=== PATIENT | female | born 1980 | race Two or more races ===

== ENCOUNTER 2016-10-10 15:38 | Inpatient (IN) | payer OTHER ==
[~2016-10-10] VITALS: Ht 165.1 cm; Wt 83.0 kg
[2016-10-10] MEDS ORDERED: METOCLOPRAMIDE 5 MG/ML, 2ML ONE (16:29)
[2016-10-10] MEDS ORDERED: DIPHENHYDRAMINE 50 MG/ML, 1ML ONE (16:29)
[2016-10-10] MEDS ORDERED: KETOROLAC 30 MG/1 ML ONE (16:29)
[2016-10-10] MEDS ORDERED: METOCLOPRAMIDE 5 MG/ML, 2ML IVPush ONE (16:30)
[2016-10-10] MEDS ORDERED: SODIUM CHLORIDE 0.9% 1,000ML IVBOLUS ONE (16:30)
[2016-10-10] MEDS ORDERED: KETOROLAC 30 MG/1 ML IVPush ONE (16:30)
[2016-10-10] MEDS ORDERED: SODIUM CHLORIDE FLUSH 10ML SYR IVF ONE ×2 (16:30)
[2016-10-10] MEDS ORDERED: DIPHENHYDRAMINE 50 MG/ML, 1ML IVPush ONE (16:30)
[2016-10-10 16:54] LABS: ASPARTATE AMINO TRANSFERASE 21 U/L (15-37); BLOOD UREA NITROGEN 8 mg/dL (7-18)
[2016-10-10 17:01] LABS: IS PT STATUS REG ER OR PRE ER? YES
[2016-10-10] MEDS ORDERED: OMNIPAQUE 350 MG/ML, 100ML BOTTLE ONE (18:23)
[2016-10-10] MEDS ORDERED: ENOXAPARIN 80 MG/0.8 ML SQ ONE (19:00)
[2016-10-10] MEDS ORDERED: ENOXAPARIN 80 MG/0.8 ML ONE (19:09)
[2016-10-10] MEDS ORDERED: hydrALAzine 20 MG/ML, 1ML IVPush PRN (21:00)
[2016-10-10 21:46] VITALS: BP 107/74
[2016-10-10] MEDS: DOXYCYCLINE 100MG TABLET PO SCH (22:18)
[2016-10-10] MEDS: DIPHENHYDRAMINE 25 MG CAPSULE PO PRN (22:19)
[2016-10-11 02:52] VITALS: BP 98/64
[2016-10-11] MEDS: DOXYCYCLINE 100MG TABLET PO SCH ×2 (08:40→21:27)
[2016-10-11] MEDS: APIXABAN 5 MG TABLET PO SCH ×2 (08:40→21:27)
[2016-10-11 08:42] VITALS: BP 104/65
[2016-10-11] MEDS: ACETAMINOPHEN 325 MG TABLET PO PRN ×3 (08:47→18:09)
[2016-10-11 13:40] VITALS: BP 90/56
[2016-10-11] MEDS ORDERED: Enoxaparin 1 mg/kg protocol SQ SCH (17:30)
[2016-10-11 20:42] VITALS: BP 100/69
[2016-10-11] MEDS: DOCUSATE 100 MG CAPSULE PO PRN (21:27)
[2016-10-11] MEDS: DIPHENHYDRAMINE 25 MG CAPSULE PO PRN (21:28)
[2016-10-12 03:00] VITALS: BP 97/67
[2016-10-12] MEDS: ACETAMINOPHEN 325 MG TABLET PO PRN ×2 (03:07→18:14)
[2016-10-12 08:10] VITALS: BP 91/59
[2016-10-12] MEDS: DOXYCYCLINE 100MG TABLET PO SCH ×2 (09:38→20:58)
[2016-10-12] MEDS: DOCUSATE 100 MG CAPSULE PO PRN (09:38)
[2016-10-12] MEDS: APIXABAN 5 MG TABLET PO SCH ×2 (09:38→20:58)
[2016-10-12] MEDS: BUTALB/APAP/CAFFEINE 50MG/325MG/40MG PO PRN ×4 (09:38→22:35)
[2016-10-12 13:10] VITALS: BP 99/76
[2016-10-12 19:41] VITALS: BP 100/63
[2016-10-13 00:47] VITALS: BP 116/70
[2016-10-13 06:59] VITALS: BP 101/71
[2016-10-13] MEDS ORDERED: DOXY100T PO (08:10)
[2016-10-13] MEDS ORDERED: APIX5TAB PO (08:10)
[2016-10-13] MEDS: DOXYCYCLINE 100MG TABLET PO SCH (08:33)
[2016-10-13] MEDS: APIXABAN 5 MG TABLET PO SCH (08:33)
[2016-10-13] MEDS: BUTALB/APAP/CAFFEINE 50MG/325MG/40MG PO PRN (10:19)
== END 2016-10-13 11:21 | DRG 175 ==
LOC: ED 19:17 → EDIP 19:20 → 4WST 21:08 → DCLOUNGE 10-13 10:30
PROVIDERS: ADMIT Internal Medicine; ATTEND Family Medicine
DX: I26.99 Other pulmonary embolism without acute cor pulmonale (principal); J15.9 Unspecified bacterial pneumonia; R45.851 Suicidal ideations; E44.1 Mild protein-calorie malnutrition; F32.9 Major depressive disorder, single episode, unspecified; J45.909 Unspecified asthma, uncomplicated; Z82.49 Family history of ischemic heart disease and other diseases of the circulatory system; Z68.30 Body mass index [BMI] 30.0-30.9, adult
CPT/HCPCS: 36415; 71010; 71275; 80053; 81240; 81241; 84484; 84703; 85025; 85240; 85300; 85303; 85306; 85379; 86147; 93005; 93970; 96361; 96372; 96374; 96375; J1650; J1885; Q9967; J1200; J2765; J7030; Q0163

== ENCOUNTER 2017-07-01 13:23 | Emergency (ER) | payer OTHER ==
[~2017-07-01] VITALS: Ht 165.1 cm; Wt 85.0 kg
[~2017-07-01 13:23] MED LIST: APIX5TAB PO; DOXY100T PO
[2017-07-01] MEDS ORDERED: SODIUM CHLORIDE FLUSH 10ML SYR IVF ONE (14:00)
[2017-07-01 14:14] LABS: BASOPHILS # (AUTO) 0.04 x10^3/uL (0-0.1); BASOPHILS % (AUTO) 1 % (0-1); EOSINOPHILS # (AUTO) 0.28 x10^3/uL (0-0.4); EOSINOPHILS % (AUTO) 4 % (1-7); LYMPHOCYTES # (AUTO) 1.78 x10^3/uL (1-3.4); LYMPHOCYTES % (AUTO) 24 % (22-44); MD NO; MEAN CORPUSCULAR HEMOGLOBIN 30.1 pg (27.0-34.8); MEAN CORPUSCULAR HGB CONC 33.6 g/dL (32.4-35.8); MEAN CORPUSCULAR VOLUME 89.8 fL (80-100); MEAN PLATELET VOLUME 7.8 fL (7.4-10.4); MONOCYTES % (AUTO) 5 % (2-9); NEUTROPHILS # (AUTO) 4.89 x10^3/uL (1.8-6.8); NEUTROPHILS % (AUTO) 66 % (42-75); PLATELET COUNT 320 x10^3/uL (130-400); RED CELL DISTRIBUTION WIDTH 12.6 % (9.6-15.2)
[2017-07-01] MEDS ORDERED: METH-356 PO (14:22)
[2017-07-01] MEDS ORDERED: IBUP-1223 PO (14:22)
[2017-07-01] MEDS ORDERED: CLON-365 PO (14:22)
[2017-07-01 14:24] LABS: INTERNATIONAL NORMALIZED RATIO 1.03 (0.93-1.1); PROTHROMBIN TIME 10.6 Seconds (9.6-11.5)
[2017-07-01 14:26] LABS: ALBUMIN 3.8 g/dL (3.4-5.0); ANION GAP 6 mmol/L (5-15); CALCIUM 8.7 mg/dL (8.5-10.1); CHLORIDE 109 mmol/L (98-107); CREATININE 1.02 mg/dL (0.55-1.02)
[2017-07-01 14:30] LABS: TROPONIN I < 0.015 ng/mL (0.000-0.045)
[2017-07-01] MEDS ORDERED: OMNIPAQUE 350 MG/ML, 100ML BOTTLE ONE (15:32)
[2017-07-01 15:37] VITALS: BP 101/61
== END 2017-07-01 16:48 | disposition home or self-care (01) ==
LOC: ED 16:15
DX: R07.9 Chest pain, unspecified (principal); R06.00 Dyspnea, unspecified; Z86.711 Personal history of pulmonary embolism
CPT/HCPCS: 36415; 71275; 80048; 82040; 84484; 85025; 85610; 85730; 93005; 99285; Q9967

== ENCOUNTER → 2017-08-03 | Outpatient (CLI) | payer OTHER ==
[~2017-08-03] MED LIST changes: +CLON-365 PO; +IBUP-1223 PO; +METH-356 PO; +SERT50TA PO
== END ==
LOC: STAR 07:45
PROVIDERS: ATTEND Specialist
DX: Z02.9 Encounter for administrative examinations, unspecified (principal)

== ENCOUNTER 2017-08-12 10:50 | Day surgery (SDC) | payer OTHER ==
[~2017-08-12] VITALS: Ht 165.1 cm; Wt 84.1 kg
[2017-08-12 11:50] VITALS: BP 110/77
[2017-08-12 11:51] LABS: HCG UR SG 1.013 (1.003-1.030)
[2017-08-12] MEDS ORDERED: LACTATED RINGERS 1,000 ML IV SCH (11:55)
[2017-08-12] MEDS ORDERED: EPINEPHRINE 1 MG/ML, 1ML ONE (12:43)
[2017-08-12] MEDS ORDERED: BUPIVACAINE/PF 0.25% ONE (12:43)
[2017-08-12] MEDS ORDERED: MIDAZOLAM 1 MG/ML, 2ML ONE (12:46)
[2017-08-12] MEDS ORDERED: FENTANYL PF 250 MCG/5ML ONE (12:46)
[2017-08-12] MEDS ORDERED: ACETAMINOPHEN 500 MG TABLET ONE (12:46)
[2017-08-12] MEDS ORDERED: FAMOTIDINE 20 MG TABLET ONE (12:46)
[2017-08-12] MEDS ORDERED: GABAPENTIN 300 MG CAPSULE ONE (12:47)
[2017-08-12] MEDS ORDERED: GABAPENTIN 300 MG CAPSULE PO ONE (13:00)
[2017-08-12] MEDS ORDERED: FAMOTIDINE 20 MG TABLET PO ONE (13:00)
[2017-08-12] MEDS ORDERED: ACETAMINOPHEN 500 MG TABLET PO ONE (13:00)
[2017-08-12] MEDS ORDERED: DEXAMETHASONE 4 MG/ML, 1ML ONE ×2 (13:09)
[2017-08-12] MEDS ORDERED: GLYCOPYRROLATE 0.2MG/1ML, 5ML ONE ×2 (13:09)
[2017-08-12] MEDS ORDERED: CEFAZOLIN 1,000 MG ONE ×2 (13:09)
[2017-08-12] MEDS ORDERED: ROCURONIUM 10 MG/ML,10ML ONE ×2 (13:09)
[2017-08-12] MEDS ORDERED: SUCCINYLCHOLINE 20 MG/ML, 10ML ONE ×2 (13:09)
[2017-08-12] MEDS ORDERED: ONDANSETRON 2MG/ML, 2ML ONE ×2 (13:09)
[2017-08-12] MEDS ORDERED: PROPOFOL 10 MG/ML, 20ML ONE ×2 (13:09)
[2017-08-12] MEDS ORDERED: KETOROLAC 30 MG/1 ML ONE ×2 (13:09)
[2017-08-12] MEDS ORDERED: KETAMINE 10 MG/ML, 20ML ONE (13:21)
[2017-08-12] MEDS ORDERED: BUPIVACAINE/PF-EPI 0.25% 1:200K IM ONE (13:37)
[2017-08-12] MEDS ORDERED: PROMETHAZINE 25 MG/ML, 1ML IV PRN (14:30)
[2017-08-12] MEDS ORDERED: LORazepam 2 MG/ML, 1ML IVPush PRN (14:30)
[2017-08-12] MEDS ORDERED: OXYcodone 5 MG/5 ML ORAL.SOL UDC PO PRN (14:30)
[2017-08-12] MEDS ORDERED: MEPERIDINE/PF 50 MG/ML ONE (14:56)
[2017-08-12] MEDS ORDERED: OXYcodone 5 MG/5 ML ORAL.SOL UDC ONE ×2 (14:56→15:00)
[2017-08-12] MEDS: MEPERIDINE/PF 25MG/0.5ML IVPush PRN ×2 (15:18→15:36)
[2017-08-12] MEDS ORDERED: FENTANYL PF 100 MCG/2ML ONE (15:32)
[2017-08-12] MEDS: FENTANYL PF 100 MCG/2ML IV PRN ×2 (15:35→15:45)
[2017-08-12] MEDS ORDERED: HYDROmorphone 1 MG/ML, 1ML ONE (15:47)
[2017-08-12] MEDS: HYDROmorphone 1 MG/ML, 1ML IV PRN ×2 (15:51→15:58)
== END 2017-08-12 16:45 ==
LOC: OUT 10:50
PROVIDERS: ATTEND Specialist
DX: D25.0 Submucous leiomyoma of uterus (principal); N80.0 Endometriosis of uterus; F32.81 Premenstrual dysphoric disorder; F41.9 Anxiety disorder, unspecified; Z98.890 Other specified postprocedural states; F32.9 Major depressive disorder, single episode, unspecified
CPT/HCPCS: 58561; 81025; 88305; J0171; J0330; J0690; J1100; J1170; J1885; J2175; J2250; J2405; J2704; J3010; J3490

== ENCOUNTER 2017-08-27 05:55 | Emergency (ER) | payer OTHER ==
[~2017-08-27] VITALS: Ht 162.6 cm; Wt 79.0 kg
[2017-08-27] MEDS ORDERED: SERT100T5 PO (06:06)
[2017-08-27] MEDS ORDERED: MORPHINE SULFATE 4 MG/ML, 1ML ONE (06:28)
[2017-08-27] MEDS ORDERED: ONDANSETRON ODT 4 MG ONE (06:29)
[2017-08-27] MEDS ORDERED: MORPHINE SULFATE 4 MG/ML, 1ML IVPush PRN (06:30)
[2017-08-27] MEDS ORDERED: SODIUM CHLORIDE FLUSH 10ML SYR IVF ONE (06:30)
[2017-08-27] MEDS ORDERED: ONDANSETRON ODT 4 MG PO ONE (06:30)
[2017-08-27 06:40] LABS: BASOPHILS # (AUTO) 0.02 x10^3/uL (0-0.1); BASOPHILS % (AUTO) 0 % (0-1); EOSINOPHILS # (AUTO) 0.08 x10^3/uL (0-0.4); EOSINOPHILS % (AUTO) 1 % (1-7); LYMPHOCYTES # (AUTO) 1.26 x10^3/uL (1-3.4); LYMPHOCYTES % (AUTO) 18 % (22-44); MD NO; MEAN CORPUSCULAR HEMOGLOBIN 29.7 pg (27.0-34.8); MEAN CORPUSCULAR HGB CONC 33.5 g/dL (32.4-35.8); MEAN CORPUSCULAR VOLUME 88.7 fL (80-100); MEAN PLATELET VOLUME 7.7 fL (7.4-10.4); MONOCYTES # (AUTO) 0.32 x10^3/uL (0.2-0.8); MONOCYTES % (AUTO) 5 % (2-9); NEUTROPHILS # (AUTO) 5.17 x10^3/uL (1.8-6.8); NEUTROPHILS % (AUTO) 76 % (42-75); PLATELET COUNT 275 x10^3/uL (130-400); RED BLOOD COUNT 4.65 x10^6/uL (3.82-5.3); RED CELL DISTRIBUTION WIDTH 12.8 % (9.6-15.2)
[2017-08-27 06:52] LABS: ALANINE AMINOTRANSFERASE 11 U/L (12-78); ALBUMIN 3.8 g/dL (3.4-5.0); ANION GAP 11 mmol/L (5-15); CALCIUM 8.2 mg/dL (8.5-10.1); CHLORIDE 110 mmol/L (98-107); CREATININE 0.92 mg/dL (0.55-1.02)
[2017-08-27 06:56] LABS: ALKALINE PHOSPHATASE 69 U/L (45-117); BILIRUBIN,TOTAL 0.4 mg/dL (0.2-1.0); TOTAL PROTEIN 7.3 g/dL (6.4-8.2); TROPONIN I < 0.015 ng/mL (0.000-0.045)
[2017-08-27] MEDS ORDERED: POTASSIUM CHLORIDE 20 MEQ TAB.ER.PRT PO ONE (08:00)
[2017-08-27] MEDS ORDERED: POTASSIUM CHLORIDE 20 MEQ TAB.ER.PRT ONE (08:06)
[2017-08-27] MEDS ORDERED: SODIUM CHLORIDE 0.9% 1,000ML IVBOLUS ONE (09:00)
[2017-08-27 09:23] VITALS: BP 102/60
[2017-08-27] MEDS ORDERED: OMNIPAQUE 350 MG/ML, 100ML BOTTLE ONE (09:32)
== END 2017-08-27 09:25 | disposition home or self-care (01) ==
LOC: ED 07:17
DX: R07.89 Other chest pain (principal); F43.0 Acute stress reaction; J45.909 Unspecified asthma, uncomplicated; F41.9 Anxiety disorder, unspecified; Z86.711 Personal history of pulmonary embolism
CPT/HCPCS: 36415; 71045; 71275; 80053; 84484; 84703; 85025; 93005; 96374; 99285; J7030; Q0162; Q9967

== ENCOUNTER 2017-08-30 07:50 | Emergency (ER) | payer OTHER ==
[~2017-08-30] VITALS: Ht 162.6 cm; Wt 79.5 kg
[~2017-08-30 07:50] MED LIST changes: +SERT100T5 PO
[2017-08-30 09:50] VITALS: BP 111/80
== END 2017-08-30 09:53 | disposition home or self-care (01) ==
LOC: ED 08:48
DX: F41.1 Generalized anxiety disorder (principal); F11.23 Opioid dependence with withdrawal; J45.909 Unspecified asthma, uncomplicated
CPT/HCPCS: 93005; 99284

== ENCOUNTER 2017-09-23 07:43 | Inpatient (IN) | payer OTHER ==
[~2017-09-23] VITALS: Ht 165.1 cm; Wt 83.1 kg
[~2017-09-23 07:43] MED LIST changes: +ZOLP10TA PO
[2017-09-23 08:25] VITALS: BP 104/72
[2017-09-23] MEDS ORDERED: LACTATED RINGERS 1,000 ML IV SCH (08:30)
[2017-09-23 08:31] LABS: HCG UR SG 1.017 (1.003-1.030)
[2017-09-23] MEDS ORDERED: SCOPOLAMINE PATCH, 1.5MG PATCH.TD72 TD ONE ×2 (08:39→09:00)
[2017-09-23] MEDS ORDERED: ONDANSETRON ODT 8 MG ONE (08:40)
[2017-09-23] MEDS ORDERED: OxyconTIN ER 20 MG TAB.ER ONE (08:40)
[2017-09-23] MEDS ORDERED: ACETAMINOPHEN 500 MG TABLET ONE (08:40)
[2017-09-23] MEDS ORDERED: GABAPENTIN 300 MG CAPSULE ONE (08:41)
[2017-09-23] MEDS ORDERED: ROCURONIUM 10MG/ML,5ML ONE ×2 (08:53→10:36)
[2017-09-23] MEDS ORDERED: PROPOFOL 10 MG/ML, 20ML ONE (08:54)
[2017-09-23] MEDS ORDERED: MIDAZOLAM 1 MG/ML, 2ML ONE (08:55)
[2017-09-23] MEDS ORDERED: FENTANYL PF 250 MCG/5ML ONE (08:55)
[2017-09-23] MEDS ORDERED: GABAPENTIN 300 MG CAPSULE PO ONE (09:00)
[2017-09-23] MEDS ORDERED: OxyconTIN ER 20 MG TAB.ER PO ONE (09:00)
[2017-09-23] MEDS ORDERED: ACETAMINOPHEN 500 MG TABLET PO ONE (09:00)
[2017-09-23] MEDS ORDERED: ONDANSETRON ODT 8 MG PO ONE (09:00)
[2017-09-23] MEDS ORDERED: FLUORESCEIN SODIUM 500 MG/5 ML ONE (09:17)
[2017-09-23] MEDS ORDERED: HEPARIN 5,000 UNITS/ML, 1ML ONE (09:17)
[2017-09-23] MEDS ORDERED: EPINEPHRINE 1 MG/ML, 1ML ONE (09:30)
[2017-09-23] MEDS ORDERED: BUPIVACAINE/PF 0.25% ONE ×2 (09:30)
[2017-09-23] MEDS ORDERED: INDIGO CARMINE 0.8%, 5ML ONE (09:33)
[2017-09-23] MEDS ORDERED: DEXMEDETOMIDINE 200 MCG/2 ML ONE (09:52)
[2017-09-23] MEDS ORDERED: PHENYLEPHRINE 10 MG/ML ONE (10:00)
[2017-09-23] MEDS ORDERED: DEXAMETHASONE 4 MG/ML, 1ML ONE (10:00)
[2017-09-23] MEDS ORDERED: CEFOTETAN PMX 2GM/50ML 50 ML IVPB ONE (10:00)
[2017-09-23] MEDS ORDERED: KETOROLAC 30 MG/1 ML ONE (13:46)
[2017-09-23] MEDS ORDERED: FENTANYL PF 100 MCG/2ML ONE (13:46)
[2017-09-23] MEDS ORDERED: NEOSTIGMINE 1 MG/ML, 10ML ONE (13:48)
[2017-09-23] MEDS ORDERED: OXYcodone 5 MG/5 ML ORAL.SOL UDC ONE (14:42)
[2017-09-23] MEDS ORDERED: MEPERIDINE/PF 25MG/0.5ML ONE (14:42)
[2017-09-23] MEDS ORDERED: PROMETHAZINE 25 MG/ML, 1ML IV PRN (15:00)
[2017-09-23] MEDS ORDERED: LORazepam 2 MG/ML, 1ML IVPush PRN (15:00)
[2017-09-23] MEDS ORDERED: morphine SULFATE 10 MG/ML, 1ML IV PRN (15:00)
[2017-09-23] MEDS ORDERED: LABETALOL 5MG/ML, 20ML IV PRN (15:00)
[2017-09-23] MEDS ORDERED: OXYcodone 5 MG/5 ML ORAL.SOL UDC PO PRN (15:00)
[2017-09-23] MEDS ORDERED: hydrALAzine 20 MG/ML, 1ML IV PRN (15:00)
[2017-09-23] MEDS ORDERED: MEPERIDINE/PF 25MG/0.5ML IVPush PRN (15:00)
[2017-09-23] MEDS ORDERED: FENTANYL PF 100 MCG/2ML IV PRN (15:00)
[2017-09-23] MEDS ORDERED: ACETAMINOPHEN 325 MG TABLET PO PRN (15:00)
[2017-09-23] MEDS ORDERED: MEPERIDINE/PF 100 MG/ML IM PRN (17:00)
[2017-09-23] MEDS ORDERED: HYDROmorphone 2 MG/ML, 1ML IV PRN (17:00)
[2017-09-23] MEDS ORDERED: ONDANSETRON 2MG/ML, 2ML IV PRN (17:00)
[2017-09-23] MEDS: CEFAZOLIN PMX 2GM/100ML 100 ML IVPB SCH (17:55)
[2017-09-23] MEDS: KETOROLAC 30 MG/1 ML IV SCH (19:47)
[2017-09-23 20:07] VITALS: BP 107/70
[2017-09-23] MEDS: POTASSIUM CHLORIDE 20 MEQ in D5%-LACTATED RINGERS 1,000 ML IV SCH (21:00)
[2017-09-23] MEDS: OXYcodone/APAP 5/325MG TABLET PO PRN (23:44)
[2017-09-23 23:45] VITALS: BP 97/65
[2017-09-24] MEDS ORDERED: ONDANSETRON ODT 4 MG PO PRN
[2017-09-24] MEDS: CEFAZOLIN PMX 2GM/100ML 100 ML IVPB SCH (01:55)
[2017-09-24] MEDS: KETOROLAC 30 MG/1 ML IV SCH ×2 (01:55→08:03)
[2017-09-24 03:16] VITALS: BP 95/57
[2017-09-24] MEDS: OXYcodone/APAP 5/325MG TABLET PO PRN ×2 (04:15→08:03)
[2017-09-24] MEDS: POTASSIUM CHLORIDE 20 MEQ in D5%-LACTATED RINGERS 1,000 ML IV SCH (04:43)
[2017-09-24 07:28] VITALS: BP 93/60
[2017-09-24] MEDS ORDERED: OXYC-302 PO (10:50)
[2017-09-24] MEDS ORDERED: IBUPROFEN 600 MG TABLET PO SCH (21:00)
== END 2017-09-24 11:06 | disposition home or self-care (01) | DRG 743 ==
LOC: ORIP 07:43 → 4NOR 14:31 → DCLOUNGE 09-24 10:58
PROVIDERS: ADMIT Specialist; ATTEND Specialist
PROC: 0U1 Female Reproductive System, Bypass (ICD-10-PCS; 2017-09-23)
PROC: 3E0T3BZ Introduction of Anesthetic Agent into Peripheral Nerves and Plexi, Percutaneous Approach (ICD-10-PCS; 2017-09-23)
PROC: 0UN70ZZ Release Bilateral Fallopian Tubes, Open Approach (ICD-10-PCS; 2017-09-23)
PROC: 0U1 Female Reproductive System, Bypass (ICD-10-PCS; principal; 2017-09-23 10:00)
DX: N97.1 Female infertility of tubal origin (principal); F32.9 Major depressive disorder, single episode, unspecified; N73.6 Female pelvic peritoneal adhesions (postinfective); G89.29 Other chronic pain; F41.9 Anxiety disorder, unspecified; Z82.49 Family history of ischemic heart disease and other diseases of the circulatory system; Z86.73 Personal history of transient ischemic attack (TIA), and cerebral infarction without residual deficits
CPT/HCPCS: 36415; 81025; 85014; 85018; 86850; 86900; J0171; J1100; J1644; J1885; J2175; J2250; J2704; J2710; J3010; J3490; Q0162; J0690; J2370; J7120; S0074